=== PATIENT | female | born 1995 | race African-American/Black ===

== ENCOUNTER 2022-05-11 15:51 | Outpatient (CLI) | payer OTHER, SELFPAY ==
[2022-05-11 18:51] LABS: Chlamydia DNA Amplified* NOT DETECTED (No Detected); GC DNA Amplified* NOT DETECTED (No Detected)
== END 2022-05-11 15:52 | disposition home or self-care (01) ==
LOC: NFLDREF 15:52
PROVIDERS: Visit Provider Physician Assistant
DX: Z11.3 Encounter for screening for infections with a predominantly sexual mode of transmission (principal)
CPT/HCPCS: 87491; 87591

== ENCOUNTER 2022-05-16 09:24 | Outpatient (CLI) | payer OTHER, SELFPAY | END 2022-05-16 09:25 | disposition home or self-care (01) | LOC: NFLDREF 05-25 14:54 | PROVIDERS: Visit Provider Physician Assistant | DX: Z13.6 Encounter for screening for cardiovascular disorders (principal) | CPT/HCPCS: 80061 ==